=== PATIENT | male | born 1995 | race Two or more races ===

== ENCOUNTER 2023-02-22 16:24 | Emergency (ER) | payer OTHER ==
[2023-02-22] MEDS ORDERED: Gentamicin 0.3% Ophth Soln 5 ML Bottle EYERT ONE (18:41)
[2023-02-22 18:44] VITALS: BP 133/86; PULSE 64
== END 2023-02-22 19:00 | disposition home or self-care (01) ==
LOC: DL.ED 16:24
DX: H10.31 Unspecified acute conjunctivitis, right eye (principal); Z88.0 Allergy status to penicillin
CPT/HCPCS: 99282; 99283; A9270

== ENCOUNTER 2023-10-04 18:47 | Emergency (ER) | payer OTHER ==
[2023-10-04 20:09] LABS: BASE EXCESS ARTERIAL -2 mmol/L ((-2)-(+3)); BICARBONATE,ARTERIAL 22.4 mmol/L (22-26); O2 DELIVERY DEVICE ROOM AIR; O2 SATURATION ARTERIAL 98 % (95-100); PCO2 ARTERIAL 40 mmHg (35-45); PH,ARTERIAL 7.36 (7.35-7.45); PO2 ARTERIAL 89 mmHg (70-100)
[2023-10-04 20:15] LABS: ALLEN TEST Y
[2023-10-04 21:16] VITALS: BP 118/80; PULSE 64
== END 2023-10-04 20:56 | disposition home or self-care (01) ==
LOC: DL.ED 18:47
DX: T59.4X1A Toxic effect of chlorine gas, accidental (unintentional), initial encounter (principal); Z88.2 Allergy status to sulfonamides; Z88.0 Allergy status to penicillin; Z88.8 Allergy status to other drugs, medicaments and biological substances
CPT/HCPCS: 36600; 71045; 82803; 99285

== ENCOUNTER 2024-06-17 05:26 | Day surgery (SDC) | payer OTHER ==
[2024-06-17] MEDS ORDERED: fentaNYL 100 MCG/2 ML SDV ONE (06:09)
[2024-06-17] MEDS ORDERED: Midazolam 1 MG/ML 2 ML SDV IV ONE (06:09)
[2024-06-17] MEDS ORDERED: Midazolam 1 MG/ML 2 ML SDV ONE (06:09)
[2024-06-17] MEDS ORDERED: fentaNYL 100 MCG/2 ML SDV IV ONE (06:09)
[2024-06-17] MEDS: Dextrose 5%-0.45% NaCl 1,000 ML IV SCH (06:18)
[2024-06-17] MEDS: fentaNYL 100 MCG/2 ML SDV IV ONE ×2 (06:30)
[2024-06-17] MEDS: Midazolam 1 MG/ML 2 ML SDV IV ONE ×2 (06:31)
[2024-06-17 07:51] VITALS: BP 103/60; PULSE 65
== END 2024-06-17 07:51 | disposition home or self-care (01) ==
LOC: DL.ENDO 05:26
PROVIDERS: ATTEND Internal Medicine Gastroenterology
DX: K29.50 Unspecified chronic gastritis without bleeding (principal); B96.81 Helicobacter pylori [H. pylori] as the cause of diseases classified elsewhere; Z88.0 Allergy status to penicillin; Z88.2 Allergy status to sulfonamides; R63.4 Abnormal weight loss; Z68.24 Body mass index [BMI] 24.0-24.9, adult
CPT/HCPCS: 43239; J2250; J3010

== ENCOUNTER 2024-06-18 05:28 | Day surgery (SDC) | payer OTHER ==
[2024-06-18] MEDS: Dextrose 5%-0.45% NaCl 1,000 ML IV SCH (05:58)
[2024-06-18] MEDS ORDERED: Midazolam 1 MG/ML 2 ML SDV ONE (06:18)
[2024-06-18] MEDS ORDERED: Midazolam 1 MG/ML 2 ML SDV IV ONE (06:18)
[2024-06-18] MEDS ORDERED: fentaNYL 100 MCG/2 ML SDV ONE (06:18)
[2024-06-18] MEDS ORDERED: fentaNYL 100 MCG/2 ML SDV IV ONE (06:18)
[2024-06-18] MEDS: fentaNYL 100 MCG/2 ML SDV IV ONE ×5 (06:22→06:36)
[2024-06-18] MEDS: Midazolam 1 MG/ML 2 ML SDV IV ONE ×6 (06:23→06:28)
[2024-06-18 08:05] VITALS: BP 96/60; PULSE 58
== END 2024-06-18 07:50 | disposition home or self-care (01) ==
LOC: DL.ENDO 05:28
PROVIDERS: ATTEND Internal Medicine Gastroenterology
DX: K64.8 Other hemorrhoids (principal); R63.4 Abnormal weight loss; Z68.24 Body mass index [BMI] 24.0-24.9, adult; Z88.2 Allergy status to sulfonamides; Z88.0 Allergy status to penicillin
CPT/HCPCS: 45378; J2250; J3010